=== PATIENT | female | born 1980 ===

== ENCOUNTER → 2023-02-12 11:15 | Outpatient (CLI) | payer OTHER, SELFPAY ==
--- NOTE | ~2023-02-12 | MR_ITS ---
EXAMINATION: MR hip LT wo con DATE: 02/12/2023 12:23 INDICATION: Muscle strain with chronic left buttock pain TECHNIQUE: Magnetic resonance imaging (MRI) of the left hip was performed without intravenous contra st. Sequences included full-field axial PD-weighted FS FSE and T1-weighted FSE, coronal of the pelvis with PD-weighted FS FSE, T2-weighted FSE and T1-weighted FSE, small field of view of the left hip w ith axial PD-weighted FS FSE, sagittal PD-weighted FS FSE, coronal PD-weighted FS FSE and coronal T2 weighted FSE. Additional radial T1-weighted FGR oriented orthogonal to the acetabular rim were obtai chad for evaluation of the labrum. COMPARISON: None FINDINGS: Bones/labrum/cartilage: Alignment is normal. No fracture, avascular necrosis or pathologic marrow replacing process. Mild de generative tearing at the 11:00 position of the posterosuperior left acetabular labrum. Articular car tilage is normal. 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 Fluid: Symmetric physiologic amount of fluid within both hip joints. Small amount of likely physiologic free fluid in the deep pelvis. Soft tissues: Normal and symmetric muscle bulk and signal in the pelvis and visualized proximal thighs. The iliopso as, gluteal and proximal hamstring tendons are normal. ID within the endocervical canal of the anteve rted uterus. The cross limbs appear to be oriented orthogonal to the plane of the endometrial canal e xtending to the anterior and posterior myometrium at the fundus. 5.1 x 5.0 x 3.5 cm cyst with single thin curvilinear internal septation. 2.0 cm left adnexal cyst. Bladder and visualized portions of bow els are unremarkable. No pathologically enlarged pelvic/inguinal lymphadenopathy. IMPRESSION: 1. Small region of degenerative tearing at the posterior superior left acetabular labrum. 2. 5.1 cm right adnexal cyst or pair of cysts with single thin septation and no evident solid soft ti ssue component. Consider annual ultrasound follow-up. 2. Intrauterine IUD with the cross limbs oriented perpendicular to the plane of the endometrial canal likely appearing to extend into the myometrium of the anterior and posterior mack of the fundus. Reviewed, dictated and finalized at location A. [employer] IMPRESSION: 1. Small region of degenerative tearing at the posterior superior left acetabul ar labrum. 2. 5.1 cm right adnexal cyst or pair of cysts with single thin septation and no evident solid soft tissue component. Consider annual ultrasound follow-up. 2. Intrauterine IUD with the cross limbs oriented perpendicular to the plane of the endometrial canal likely appearing to extend into the myometrium of the an terior and posterior mack of the fundus.
== END ==
PROVIDERS: PCP Nurse Practitioner Family; Visit Provider Nurse Practitioner Family
DX: N85.8 Other specified noninflammatory disorders of uterus (principal); Z97.5 Presence of (intrauterine) contraceptive device; S76.012A Strain of muscle, fascia and tendon of left hip, initial encounter; X58.XXXA Exposure to other specified factors, initial encounter
CPT/HCPCS: 73721